=== PATIENT | female | born 1965 | race Caucasian/White ===

== ENCOUNTER 2021-01-04 09:36 | Inpatient (IN) | payer OTHER ==
[2021-01-04 10:14] VITALS: BMI 19.0
[2021-01-04] MEDS ORDERED: MENTHOL/PHENOL 1 EACH UD MM PRN (10:32)
[2021-01-04] MEDS ORDERED: BISMUTH SUBSALICYLATE 524 MG/30 ML UD PO PRN (10:32)
[2021-01-04] MEDS ORDERED: LORazepam 1 MG TABLET PO PRN (10:32)
[2021-01-04] MEDS ORDERED: NICOTINE POLACRILEX 2 MG GUM BUC PRN (10:32)
[2021-01-04] MEDS ORDERED: ONDANSETRON *ODT* 4 MG TABLET SL PRN (10:32)
[2021-01-04] MEDS ORDERED: ACETAMINOPHEN 325 MG TABLET (FP) PO PRN ×2 (10:32)
[2021-01-04] MEDS ORDERED: MAG HYDROX/AL HYDROX/SIMETH 30 ML UNIT-DOSE CUP PO PRN (10:32)
[2021-01-04] MEDS ORDERED: MAGNESIUM CITRATE 300 ML BOTTLE PO PRN (10:32)
[2021-01-04] MEDS ORDERED: MAGNESIUM HYDROX 2400MG/30ML ORAL SUSPENSION 30 ML CUP PO PRN (10:32)
[2021-01-04] MEDS ORDERED: METHOCARBAMOL 500 MG TABLET PO PRN (10:32)
[2021-01-04] MEDS ORDERED: IBUPROFEN 400 MG TABLET (FP) PO PRN (10:32)
[2021-01-04] MEDS ORDERED: NICOTINE 14 MG/24 HOURS TOPICAL PATCH TD SCH (11:00)
[2021-01-04 12:48] LABS: POTASSIUM 3.3 mmol/L (3.5-5.1)
[2021-01-04 12:56] LABS: CALCIUM 8.8 mg/dL (8.5-10.1); TOT PROT 7.2 g/dl (6.4-8.2)
[2021-01-04 12:57] LABS: ALBUMIN 3.7 g/dl (3.4-5.0); BLOOD UREA NITROGEN 26.8 mg/dL (7-18)
[2021-01-04 13:00] LABS: CREATININE 0.9 mg/dL (0.55-1.3)
[2021-01-04 13:01] LABS: BILIRUBIN,TOTAL 0.7 mg/dL (0.2-1)
[2021-01-04 13:51] LABS: HEMATOCRIT 37.9 % (32.4-45.2); MCHC 34.4 g/dl (32.0-36.0); MEAN CELL VOLUME 93.1 fl (80-96); MEAN PLT VOLUME 7.6 fl (7.5-11.1); PLATELET COUNT 234 K/MM3 (134-434); RBC 4.07 M/mm3 (3.60-5.2); WHITE BLOOD COUNT 10.9 K/mm3 (4.0-10.0)
[2021-01-04] MEDS: hydrOXYzine PAMOATE 25 MG CAPSULE (FP) PO SCH ×3 (13:58→22:34)
[2021-01-04] MEDS: LORazepam 2 MG TABLET PO SCH ×2 (17:48→22:34)
[2021-01-04] MEDS ORDERED: MELATONIN 5 MG TABLETS PO SCH (22:00)
[2021-01-04] MEDS ORDERED: THIAMINE HCL 100 MG TABLET (FP) PO SCH (22:00)
[2021-01-04] MEDS ORDERED: POTASSIUM CHLORIDE TABS 20 MEQ TABLET.ER (FP) PO SCH (22:00)
[2021-01-04 22:58] VITALS: BP 126/81; PULSE 88; TEMP 97.3
[2021-01-05] MEDS ORDERED: METHADONE HCL 40 MG DISPERSABLE TABLET PO SCH (06:00)
[2021-01-05] MEDS: LORazepam 2 MG TABLET PO SCH (06:20)
[2021-01-05] MEDS: hydrOXYzine PAMOATE 25 MG CAPSULE (FP) PO SCH (06:20)
[2021-01-05] MEDS ORDERED: PRENATAL VITAMINS W/ FOLIC ACID TABLET (FP) PO SCH (10:00)
[2021-01-06] MEDS ORDERED: LORazepam 1 MG TABLET PO SCH (05:00)
[2021-01-07] MEDS ORDERED: LORazepam 0.5 MG TABLET PO PRN
[2021-01-07] MEDS ORDERED: LORazepam 0.5 MG TABLET PO SCH (05:00)
[2021-01-08] MEDS ORDERED: LORazepam 0.5 MG TABLET PO ONE (05:00)
== END 2021-01-05 09:01 | disposition left against medical advice (07) | DRG 770 ==
LOC: YASAS 09:36 → Y3N 10:36
PROVIDERS: ADMIT Allergy & Immunology; ATTEND Allergy & Immunology
PROC: HZ2ZZZZ Detoxification Services for Substance Abuse Treatment (ICD-10-PCS; principal; 2021-01-04)
DX: F10.230 Alcohol dependence with withdrawal, uncomplicated (principal); F11.20 Opioid dependence, uncomplicated; F14.20 Cocaine dependence, uncomplicated; F19.20 Other psychoactive substance dependence, uncomplicated; F17.210 Nicotine dependence, cigarettes, uncomplicated; F19.24 Other psychoactive substance dependence with psychoactive substance-induced mood disorder; K50.90 Crohn's disease, unspecified, without complications; B18.2 Chronic viral hepatitis C; D72.829 Elevated white blood cell count, unspecified; R63.4 Abnormal weight loss; Z68.1 Body mass index [BMI] 19.9 or less, adult; Z88.6 Allergy status to analgesic agent
CPT/HCPCS: 36415; 80053; 81025; 85027; 86780; 93005; 93010; C9803; U0003